=== PATIENT | female | born 1990 | race American Indian/Alaskan Native ===

== ENCOUNTER 2017-06-27 15:31 | Emergency (ER) | payer MEDICAID ==
[2017-06-27] MEDS ORDERED: ULTRAM PO ONE (18:40)
--- NOTE | 2017-06-27 18:44 | Emergency Department Report ---
ED ENT HPI - General Chief complaint: Dental/Oral Stated complaint: RIGHT SIDE TOOTHACHE/EARACHE/HEADACHE Time Seen by Provider: 06/27/17 18:33 Source: patient Mode of arrival: Ambulatory Limitations: No Limitations - History of Present Illness Initial comments: pt is as 26 y/o aaf with hx of dental caries who presents for toothache x 1 week pt denies facial or gum swelling pt is tolerating po intake without difficulty. pain described as 6/10 aching , exacerbated by hot and cold stimuli , pt has not attempted otc pain relief. MD complaint: tooth pain Onset/Timin -: week(s) Location: tooth # (3,4 5) Severity: moderate Severity scale (0 -10): 6 Quality: aching Consistency: intermittent Improves with: none Worsens with: other (hot cold stimuli ) Associated Symptoms: toothache. denies: fever, cough, gum swelling, pain with swallowing, sore throat, tinnitus, hearing loss, discharge from ear, rhinorrhea - Related Data Previous Rx's Medication Instructions Recorded Last Taken Type Amoxicillin 500 mg PO TID #30 capsule 06/27/17 Unknown Rx Chlorhexidine Mouthwash [Peridex] 15 ml MM BID #1 bottle 06/27/17 Unknown Rx traMADol [Ultram] 50 mg PO Q6HR PRN #20 tablet 06/27/17 Unknown Rx Allergies Allergy/AdvReac Type Severity Reaction Status Date / Time amoxicillin AdvReac Swelling Verified 06/27/17 16:25 ED Dental HPI - General Chief complaint: Dental/Oral Stated complaint: RIGHT SIDE TOOTHACHE/EARACHE/HEADACHE Time Seen by Provider: 06/27/17 18:33 Source: patient Mode of arrival: Ambulatory Limitations: No Limitations - Related Data Previous Rx's Medication Instructions Recorded Last Taken Type Amoxicillin 500 mg PO TID #30 capsule 06/27/17 Unknown Rx Chlorhexidine Mouthwash [Peridex] 15 ml MM BID #1 bottle 06/27/17 Unknown Rx traMADol [Ultram] 50 mg PO Q6HR PRN #20 tablet 06/27/17 Unknown Rx Allergies Allergy/AdvReac Type Severity Reaction Status Date / Time amoxicillin AdvReac Swelling Verified 06/27/17 16:25 ED Review of Systems ROS: Stated complaint: RIGHT SIDE TOOTHACHE/EARACHE/HEADACHE Other details as noted in HPI Constitutional: denies: chills, fever Eyes: denies: eye pain, eye discharge, vision change ENT: dental pain Respiratory: denies: cough, shortness of breath, wheezing Cardiovascular: denies: chest pain, palpitations Endocrine: no symptoms reported Gastrointestinal: denies: abdominal pain, nausea, diarrhea Genitourinary: denies: urgency, dysuria, discharge Musculoskeletal: denies: back pain, joint swelling, arthralgia Skin: denies: rash, lesions Neurological: denies: headache, weakness, paresthesias Psychiatric: denies: anxiety, depression Hematological/Lymphatic: denies: easy bleeding, easy bruising ED Past Medical Hx - Past Medical History Previous Medical History?: No - Surgical History Hx Appendectomy: Yes Additional Surgical History: 2007 - Social History Smoking Status: Current Every Day Smoker Substance Use Type: Marijuana - Medications Home Medications: Home Medications Medication Instructions Recorded Confirmed Last Taken Type Amoxicillin 500 mg PO TID #30 capsule 06/27/17 Unknown Rx Chlorhexidine Mouthwash [Peridex] 15 ml MM BID #1 bottle 06/27/17 Unknown Rx traMADol [Ultram] 50 mg PO Q6HR PRN #20 tablet 06/27/17 Unknown Rx ED Physical Exam - General Limitations: No Limitations General appearance: alert, in no apparent distress - Head Head exam: Present: atraumatic, normocephalic - Eye Eye exam: Present: normal appearance, PERRL, EOMI - ENT ENT exam: Present: mucous membranes moist, TM's normal bilaterally - Expanded ENT Exam Expanded Mouth exam: Absent: trismus Teeth exam: Present: dental caries (multiple upper and lower dental caries no focal abscess no trimus no gum or facial swelling uvula midline no stridor airway is patent no cervicle lymph noted ) - Neck Neck exam: Present: normal inspection - Respiratory Respiratory exam: Present: normal lung sounds bilaterally. Absent: respiratory distress - Cardiovascular Cardiovascular Exam: Present: regular rate, normal rhythm. Absent: systolic murmur, diastolic murmur, rubs, gallop - GI/Abdominal GI/Abdominal exam: Present: soft, normal bowel sounds - Rectal Rectal exam: Present: deferred - Extremities Exam Extremities exam: Present: normal inspection - Back Exam Back exam: Present: normal inspection - Neurological Exam Neurological exam: Present: alert, oriented X3 - Psychiatric Psychiatric exam: Present: normal affect, normal mood - Skin Skin exam: Present: warm, dry, intact, normal color. Absent: rash ED Course Vital Signs 06/27/17 16:16 Temperature 98.2 F Pulse Rate 64 Respiratory 14 Rate Blood Pressure 124/86 O2 Sat by Pulse 100 Oximetry ED Medical Decision Making - Medical Decision Making pt presents for chronic infected dental carries mulitple no focal abscess no facial or gum swelling pt is tolerating po intake without difficulty plan. amoxicillin , peridex, ultram and follow up with [facility] will call on friday to setup appointment. pt verbalized understanding and agreement with discharge plan. Critical care attestation.: If time is entered above; I have spent that time in minutes in the direct care of this critically ill patient, excluding procedure time. ED Disposition Clinical Impression: Infected dental carries Disposition: TO HOME OR SELFCARE Is pt being admited?: No Does the pt Need Aspirin: No Condition: Good Instructions: Dental Caries (ED) Additional Instructions: follow up with [facility] [phone] [address] [facility] [id number] Prescriptions: Amoxicillin 500 mg PO TID #30 capsule Chlorhexidine Mouthwash [Peridex] 15 ml MM BID #1 bottle traMADol [Ultram] 50 mg PO Q6HR PRN #20 tablet PRN Reason: Pain Referrals: PRIMARY CARE, [Primary Care Provider] - 3-5 Days Forms: Work/School Release Form(ED) Time of Disposition: 18:51
[2017-06-27 19:09] VITALS: BP 128/70
== END 2017-06-27 19:07 | disposition home or self-care (01) ==
LOC: ED 15:31
DX: K02.9 Dental caries, unspecified (principal); F17.210 Nicotine dependence, cigarettes, uncomplicated; F12.10 Cannabis abuse, uncomplicated; Z88.1 Allergy status to other antibiotic agents
CPT/HCPCS: 99282

== ENCOUNTER 2017-11-19 12:15 | Emergency (ER) | payer MEDICAID ==
[2017-11-19 13:22] VITALS: BP 110/80
[2017-11-19] MEDS ORDERED: TORADOL IV ONE (19:36)
[2017-11-19] MEDS ORDERED: CLEOCIN 900 MG/50 mL 900 MG/50 ML BAG IV ONE (19:36)
[2017-11-19 20:24] LABS: BUN/Creatinine Ratio 24; Blood Urea Nitrogen 12 mg/dL (7-17); Hemolysis Index 13
[2017-11-19 20:26] LABS: Eosinophils # (Auto) 0.2 K/mm3 (0.0-0.4); Eosinophils % (Auto) 1.3 % (0.0-4.3); Hematocrit 38.2 % (30.3-42.9); Hemoglobin 12.3 gm/dl (10.1-14.3); Lymphocytes % (Auto) 23.7 % (13.4-35.0); Mean Corpuscular HGB Conc 32 % (30-34); Mean Corpuscular Hemoglobin 29 pg (28-32); Mean Corpuscular Volume 89 fl (79-97); Monocytes # (Auto) 0.8 K/mm3 (0.0-0.8); Monocytes % (Auto) 6.4 % (0.0-7.3); Platelet Count 286 K/mm3 (140-440); Red Blood Count 4.31 M/mm3 (3.65-5.03); Red Cell Distribution Width 14.5 % (13.2-15.2)
[2017-11-19 20:27] LABS: Basophils % (Auto) 0.2 % (0.0-1.8)
--- NOTE | 2017-11-19 20:33 | Emergency Department Report ---
ED ENT HPI - General Chief complaint: Skin/Abscess/Foreign Body Stated complaint: ABSCESS FACE SWELLING Time Seen by Provider: 11/19/17 17:33 Source: patient Mode of arrival: Ambulatory Limitations: No Limitations - History of Present Illness Initial comments: This is a 27-year-old female presents nontoxic, well nourished in appearance, no acute signs of distress presents to the ED with c/o of chronic intermittent toothache. This morning she woke up with left-sided facial swelling. Patient denies any trauma to the region. Discussed pain is aching with level of 10 out of 10. Patient has a chest pain, headache, blurry vision, shortness of breath, fever, chills, nausea, vomiting or stiff neck. Patient denies any allergies or past medical history. MD complaint: tooth pain -: year(s) Location: tooth # (Multiple) 1 - Multiple Severity: mild Severity scale (0 -10): 10 Quality: aching Consistency: constant Improves with: none Worsens with: none Context- Dental: history of dental caries, poor dental care Associated Symptoms: gum swelling, toothache. denies: fever, cough, pain with swallowing, sore throat, tinnitus, hearing loss, discharge from ear, rhinorrhea - Related Data Previous Rx's Medication Instructions Recorded Last Taken Type Amoxicillin 500 mg PO TID #30 capsule 06/27/17 Unknown Rx Chlorhexidine Mouthwash [Peridex] 15 ml MM BID #1 bottle 06/27/17 Unknown Rx traMADol [Ultram] 50 mg PO Q6HR PRN #20 tablet 06/27/17 Unknown Rx Clindamycin [Clindamycin CAP] 450 mg PO Q8HR 7 Days capsule 11/19/17 Unknown Rx traMADol [Ultram] 50 mg PO Q6HR PRN #12 tablet 11/19/17 Unknown Rx Allergies Allergy/AdvReac Type Severity Reaction Status Date / Time No Known Allergies Allergy Unverified 11/19/17 13:20 ED Dental HPI - General Chief complaint: Skin/Abscess/Foreign Body Stated complaint: ABSCESS FACE SWELLING Time Seen by Provider: 11/19/17 17:33 Source: patient Mode of arrival: Ambulatory Limitations: No Limitations - Related Data Previous Rx's Medication Instructions Recorded Last Taken Type Amoxicillin 500 mg PO TID #30 capsule 06/27/17 Unknown Rx Chlorhexidine Mouthwash [Peridex] 15 ml MM BID #1 bottle 06/27/17 Unknown Rx traMADol [Ultram] 50 mg PO Q6HR PRN #20 tablet 06/27/17 Unknown Rx Clindamycin [Clindamycin CAP] 450 mg PO Q8HR 7 Days capsule 11/19/17 Unknown Rx traMADol [Ultram] 50 mg PO Q6HR PRN #12 tablet 11/19/17 Unknown Rx Allergies Allergy/AdvReac Type Severity Reaction Status Date / Time No Known Allergies Allergy Unverified 11/19/17 13:20 ED Review of Systems ROS: Stated complaint: ABSCESS FACE SWELLING Other details as noted in HPI Constitutional: denies: chills, fever Eyes: denies: eye pain, eye discharge, vision change ENT: dental pain. denies: ear pain, throat pain Respiratory: denies: cough, shortness of breath, wheezing Cardiovascular: denies: chest pain, palpitations Endocrine: no symptoms reported Gastrointestinal: denies: abdominal pain, nausea, diarrhea Genitourinary: denies: urgency, dysuria, discharge Musculoskeletal: denies: back pain, joint swelling, arthralgia Skin: denies: rash, lesions Neurological: denies: headache, weakness, paresthesias Psychiatric: denies: anxiety, depression Hematological/Lymphatic: denies: easy bleeding, easy bruising ED Past Medical Hx - Past Medical History Previous Medical History?: No - Surgical History Hx Appendectomy: Yes Additional Surgical History: 2007 - Social History Smoking Status: Current Every Day Smoker Substance Use Type: None - Medications Home Medications: Home Medications Medication Instructions Recorded Confirmed Last Taken Type Amoxicillin 500 mg PO TID #30 capsule 06/27/17 Unknown Rx Chlorhexidine Mouthwash [Peridex] 15 ml MM BID #1 bottle 06/27/17 Unknown Rx traMADol [Ultram] 50 mg PO Q6HR PRN #20 tablet 06/27/17 Unknown Rx Clindamycin [Clindamycin CAP] 450 mg PO Q8HR 7 Days capsule 11/19/17 Unknown Rx traMADol [Ultram] 50 mg PO Q6HR PRN #12 tablet 11/19/17 Unknown Rx ED Physical Exam - General Limitations: No Limitations General appearance: alert, in no apparent distress - Head Head exam: Present: atraumatic, normocephalic, normal inspection - Eye Eye exam: Present: normal appearance, PERRL, EOMI. Absent: scleral icterus, conjunctival injection, nystagmus, periorbital swelling, periorbital tenderness Pupils: Present: normal accommodation - ENT ENT exam: Present: mucous membranes moist, TM's normal bilaterally, normal external ear exam - Expanded ENT Exam Expanded Ear exam: Present: normal external inspection Mouth exam: Present: normal external inspection, tongue normal. Absent: drooling, trismus, muffled voice, tongue elevation, laceration Teeth exam: Present: dental caries, fractured tooth # (Multiple), dental tenderness # (Multiple), gingival enlargement, other (Left sided facial swelling.) 1 - Fractured, Dental Tenderness Throat exam: Positive: normal inspection, other (Uvula midline). Negative: tonsillar erythema, tonsillomegaly, tonsillar exudate, R peritonsillar mass, L peritonsillar mass - Neck Neck exam: Present: normal inspection, full ROM. Absent: tenderness, meningismus, lymphadenopathy, thyromegaly - Respiratory Respiratory exam: Present: normal lung sounds bilaterally. Absent: respiratory distress, wheezes, rales, rhonchi, stridor, chest wall tenderness, accessory muscle use, decreased breath sounds, prolonged expiratory - Cardiovascular Cardiovascular Exam: Present: regular rate, normal rhythm, normal heart sounds. Absent: irregular rhythm, systolic murmur, diastolic murmur, rubs, gallop - GI/Abdominal GI/Abdominal exam: Present: soft, normal bowel sounds. Absent: distended, tenderness, guarding, rebound, rigid, diminished bowel sounds - Rectal Rectal exam: Present: deferred - Extremities Exam Extremities exam: Present: normal inspection, full ROM, normal capillary refill. Absent: tenderness, pedal edema, joint swelling, calf tenderness - Back Exam Back exam: Present: normal inspection, full ROM. Absent: tenderness, CVA tenderness (R), CVA tenderness (L), muscle spasm, paraspinal tenderness, vertebral tenderness, rash noted - Neurological Exam Neurological exam: Present: alert, oriented X3, CN II-XII intact, normal gait, reflexes normal - Psychiatric Psychiatric exam: Present: normal affect, normal mood - Skin Skin exam: Present: warm, dry, intact, normal color. Absent: rash ED Course Vital Signs 11/19/17 13:20 Temperature 98.5 F Pulse Rate 69 Respiratory 18 Rate Blood Pressure 110/80 O2 Sat by Pulse 99 Oximetry - Reevaluation(s) Reevaluation #1: 11/19/17 20:36 Patient is speaking in full sentences with no signs of distress noted. - I & D Face Type of Procedure: Simple Site: left gingivial region Blade Size: 11 Progress: Under sterile field, I used Betadine to cleanse the area. I then used an 11 blade to make a 1 cm incision. About 10 mL's of purulent drainage has been noted. I then used sterile 0.9% normal saline flush to flush the wound with total volume of 40 mL used. Bleeding is under control. Patient tolerated the procedure well with no signs of distress noted. ED Medical Decision Making - Lab Data Result diagrams: 11/19/17 19:54 11/19/17 19:54 - Medical Decision Making This is a 27-year-old female that presents with Multiple dental caries, gingivitis, and maxillary abscess. Patient stable and wasn't examined by me. Labs obtained. CT of face with contrast obtained and dictated the radiologist. Patient is notified of CT findings with note noted by the patient. Patient received clindamycin 900 mg IV in the ED and Toradol for pain. I used 11 blade to anderson the left gingival region with positive drainage noted. Patient discharged with Clinda and Ultram and was instructed not to operate any machinery while taking Ultram due to drowsiness.. Patient was instructed Follow -up with a dentist/oral maxillary surgeon in 24 hours or if symptoms worsen and continue return to emergency room as soon as possible. At time time of discharge, the patient does not seem toxic or ill in appearance. No acute signs of distress noted. Patient agrees to discharge treatment plan of care. No further questions noted by the patient. Critical care attestation.: If time is entered above; I have spent that time in minutes in the direct care of this critically ill patient, excluding procedure time. ED Disposition Clinical Impression: Dental caries, Gingivitis, Abscess of maxilla, Encounter for incision and drainage procedure Disposition: TO HOME OR SELFCARE Is pt being admited?: No Does the pt Need Aspirin: No Condition: Stable Instructions: Clindamycin (By mouth), Tramadol (By mouth), Dental Caries (ED), Gingivitis (ED), Abscess Incision and Drainage (ED), Dental Abscess (ED) Additional Instructions: Follow-up with a dentist/oral maxillary surgeon in 24 hours or if symptoms worsen and continue return to emergency room as soon as possible. Prescriptions: Clindamycin [Clindamycin CAP] 450 mg PO Q8HR 7 Days capsule traMADol [Ultram] 50 mg PO Q6HR PRN #12 tablet PRN Reason: Pain Referrals: JETT PERKINS MD [Primary Care Provider] - 3-5 Days PRIMARY CARE, [Referring] - 3-5 Days [facility] [place] [Outside] - 3-5 Days [facility] [Outside] - 24 Hours Forms: Work/School Release Form(ED)
--- NOTE | 2017-11-19 21:45 | Cat Scan Report ---
FINAL REPORT PROCEDURE: CT FACIAL BONES W CON TECHNIQUE: Computerized tomography of the facial bones and soft tissues with axial and coronal sections was performed from the cranial aspect of the frontal sinuses to the caudal portion of the mandible following the IV injection of iodinated nonionic contrast. HISTORY: facial swelling r/o abscess COMPARISON: No prior studies are available for comparison. FINDINGS: There is lucency at the root of the left maxillary 2nd premolar, compatible with periapical abscess. There is an adjacent soft tissue low-attenuation area with peripheral enhancement, compatible with a subperiosteal abscess; this measures approximately 8 millimeters AP x 5 millimeters transverse x 18 millimeters craniocaudal. There is overlying stranding, compatible with cellulitis. Paranasal sinuses are aerated. IMPRESSION: Left maxillary periapical abscess with overlying subperiosteal abscess as described above
[2017-11-19] MEDS ORDERED: BOOSTRIX IM ONE (22:04)
== END 2017-11-19 22:49 | disposition home or self-care (01) ==
LOC: ED 12:15
DX: M27.2 Inflammatory conditions of jaws (principal); K02.9 Dental caries, unspecified; K05.10 Chronic gingivitis, plaque induced; F17.200 Nicotine dependence, unspecified, uncomplicated
CPT/HCPCS: 36415; 41800; 70487; 80048; 84703; 85025; 90471; 90715; 96365; 96375; 99284; J1885; Q9967

== ENCOUNTER 2017-12-31 13:40 | Outpatient (CLI) | payer MEDICAID ==
--- NOTE | 2017-12-31 16:13 | Ultrasound Report ---
BILATERAL DIGITAL DIAGNOSTIC MAMMOGRAM with CAD and RIGHT BREAST ULTRASOUND: 12/31/17 14:00:00 CLINICAL: 27 year-old with a right breast lump and pain for one week. COMPARISON:None. Baseline mammogram. FINDINGS: The breasts are heterogeneously dense, which may obscure small masses areaNo mass, architectural distortion or suspicious calcifications . No mammographic finding at a right upper outer palpable marker. Ultrasound of the right breast (including all four quadrants and the retroareolar area) was performed and demonstrated normal fibroglandular and fatty structures. No mass, cyst or shadowing. Normal breast tissue is identified at 10 o'clock in the area of the palpable lump. IMPRESSION: Negative mammogram and negative right breast ultrasound. BI-RADS CATEGORY: 1 - - Negative RECOMMENDATION: Clinical follow-up of the palpable area and routine mammographic screening based on ACS guidelines. ACR BI-RADS MAMMOGRAPHIC CODES: 0 = Needs additional imaging evaluation; 1 = Negative; 2 = Benign; 3 = Probably benign; 4 = Suspicious; 5 = Malignant; 6 = Known biopsy-proven malignancy COMMENT: 1. Dense breast tissue, i.e., adenosis, fibrocystic changes, etc., may obscure an underlying neoplasm. 2. Approximately 10% of cancers are not detected with mammography. 3. A negative mammography report should not delay biopsy if a clinically suspicious mass is present. COMMENT: Patient follow-up letters are generated by our [employer] application.
== END 2017-12-31 13:41 | disposition home or self-care (01) ==
LOC: MAMMO 13:40
PROVIDERS: ATTEND Internal Medicine
DX: N63.10 Unspecified lump in the right breast, unspecified quadrant (principal); N64.4 Mastodynia
CPT/HCPCS: 77066

== ENCOUNTER 2018-01-11 08:01 | Emergency (ER) | payer MEDICAID ==
[2018-01-11 08:08] VITALS: BP 115/67
[2018-01-11] MEDS ORDERED: MOTRIN PO ONE (10:49)
--- NOTE | 2018-01-11 10:55 | Emergency Department Report ---
ED ENT HPI - General Chief complaint: Dental/Oral Stated complaint: ABSCESSED TOOTH Time Seen by Provider: 01/11/18 10:17 Source: patient Mode of arrival: Ambulatory Limitations: No Limitations - History of Present Illness Initial comments: This is a 27-year-old female presents nontoxic, well nourished in appearance, no acute signs of distress presents to the ED with c/o of chronic intermittent toothache. Patient stated she feels a small bump to the right upper tooth region and believes she has an abscess. Patient denies any trauma to the region. Discussed pain is aching with level of 10 out of 10. Patient has a chest pain, headache, blurry vision, shortness of breath, fever, chills, nausea , vomiting or stiff neck. Patient denies any allergies or past medical history. MD complaint: tooth pain Location: tooth # (6,7,8) 1 - toothache Severity scale (0 -10): 8 Quality: aching Consistency: constant Improves with: none Worsens with: none Context- Dental: history of dental caries, poor dental care Associated Symptoms: gum swelling, toothache. denies: fever, cough, pain with swallowing, sore throat, tinnitus, hearing loss, discharge from ear, rhinorrhea - Related Data Previous Rx's Medication Instructions Recorded Last Taken Type Amoxicillin 500 mg PO TID #30 capsule 06/27/17 Unknown Rx Chlorhexidine Mouthwash [Peridex] 15 ml MM BID #1 bottle 06/27/17 Unknown Rx traMADol [Ultram] 50 mg PO Q6HR PRN #20 tablet 06/27/17 Unknown Rx Clindamycin [Clindamycin CAP] 450 mg PO Q8HR 7 Days capsule 11/19/17 Unknown Rx traMADol [Ultram] 50 mg PO Q6HR PRN #12 tablet 11/19/17 Unknown Rx Chlorhexidine Mouthwash [Peridex] 15 ml MM BID #1 bottle 01/11/18 Unknown Rx Clindamycin [Clindamycin CAP] 450 mg PO Q6HR 7 Days capsule 01/11/18 Unknown Rx Ibuprofen [Motrin] 600 mg PO Q8H PRN 30 Days tablet 01/11/18 Unknown Rx Allergies Allergy/AdvReac Type Severity Reaction Status Date / Time No Known Allergies Allergy Unverified 11/19/17 13:20 ED Dental HPI - General Chief complaint: Dental/Oral Stated complaint: ABSCESSED TOOTH Time Seen by Provider: 01/11/18 10:17 Source: patient Mode of arrival: Ambulatory Limitations: No Limitations - Related Data Previous Rx's Medication Instructions Recorded Last Taken Type Amoxicillin 500 mg PO TID #30 capsule 06/27/17 Unknown Rx Chlorhexidine Mouthwash [Peridex] 15 ml MM BID #1 bottle 06/27/17 Unknown Rx traMADol [Ultram] 50 mg PO Q6HR PRN #20 tablet 06/27/17 Unknown Rx Clindamycin [Clindamycin CAP] 450 mg PO Q8HR 7 Days capsule 11/19/17 Unknown Rx traMADol [Ultram] 50 mg PO Q6HR PRN #12 tablet 11/19/17 Unknown Rx Chlorhexidine Mouthwash [Peridex] 15 ml MM BID #1 bottle 01/11/18 Unknown Rx Clindamycin [Clindamycin CAP] 450 mg PO Q6HR 7 Days capsule 01/11/18 Unknown Rx Ibuprofen [Motrin] 600 mg PO Q8H PRN 30 Days tablet 01/11/18 Unknown Rx Allergies Allergy/AdvReac Type Severity Reaction Status Date / Time No Known Allergies Allergy Unverified 11/19/17 13:20 ED Review of Systems ROS: Stated complaint: ABSCESSED TOOTH Other details as noted in HPI Constitutional: denies: chills, fever Eyes: denies: eye pain, eye discharge, vision change ENT: dental pain. denies: ear pain, throat pain Respiratory: no symptoms reported. denies: cough, shortness of breath, wheezing Cardiovascular: denies: chest pain, palpitations Endocrine: no symptoms reported Gastrointestinal: denies: abdominal pain, nausea, diarrhea Genitourinary: denies: urgency, dysuria, discharge Musculoskeletal: denies: back pain, joint swelling, arthralgia Skin: denies: rash, lesions Neurological: denies: headache, weakness, paresthesias Psychiatric: denies: anxiety, depression Hematological/Lymphatic: denies: easy bleeding, easy bruising ED Past Medical Hx - Past Medical History Previous Medical History?: No - Surgical History Hx Appendectomy: Yes Additional Surgical History: 2008 - Social History Smoking Status: Current Every Day Smoker Substance Use Type: None - Medications Home Medications: Home Medications Medication Instructions Recorded Confirmed Last Taken Type Amoxicillin 500 mg PO TID #30 capsule 06/27/17 Unknown Rx Chlorhexidine Mouthwash [Peridex] 15 ml MM BID #1 bottle 06/27/17 Unknown Rx traMADol [Ultram] 50 mg PO Q6HR PRN #20 tablet 06/27/17 Unknown Rx Clindamycin [Clindamycin CAP] 450 mg PO Q8HR 7 Days capsule 11/19/17 Unknown Rx traMADol [Ultram] 50 mg PO Q6HR PRN #12 tablet 11/19/17 Unknown Rx Chlorhexidine Mouthwash [Peridex] 15 ml MM BID #1 bottle 01/11/18 Unknown Rx Clindamycin [Clindamycin CAP] 450 mg PO Q6HR 7 Days capsule 01/11/18 Unknown Rx Ibuprofen [Motrin] 600 mg PO Q8H PRN 30 Days tablet 01/11/18 Unknown Rx ED Physical Exam - General Limitations: No Limitations General appearance: alert, in no apparent distress - Head Head exam: Present: atraumatic, normocephalic - Eye Eye exam: Present: normal appearance, PERRL, EOMI Pupils: Present: normal accommodation - ENT ENT exam: Present: mucous membranes moist, TM's normal bilaterally, normal external ear exam - Expanded ENT Exam Expanded Ear exam: Present: normal external inspection Mouth exam: Present: normal external inspection, tongue normal. Absent: drooling, trismus, muffled voice, tongue elevation, laceration Teeth exam: Present: dental caries, dental tenderness # (6,7,8), gingival enlargement, other (No swellig or abscess noted. No induration or flutance ntoed. ) 1 - Dental Tenderness Throat exam: Positive: normal inspection, other (Uvula midlione. ). Negative: tonsillar erythema, tonsillomegaly, tonsillar exudate, R peritonsillar mass, L peritonsillar mass - Neck Neck exam: Present: normal inspection, full ROM. Absent: tenderness, meningismus, lymphadenopathy, thyromegaly - Respiratory Respiratory exam: Present: normal lung sounds bilaterally. Absent: respiratory distress, wheezes, rales, rhonchi, stridor, chest wall tenderness, accessory muscle use, decreased breath sounds, prolonged expiratory - Cardiovascular Cardiovascular Exam: Present: regular rate, normal rhythm. Absent: systolic murmur, diastolic murmur, rubs, gallop - GI/Abdominal GI/Abdominal exam: Present: soft, normal bowel sounds - Extremities Exam Extremities exam: Present: normal inspection - Back Exam Back exam: Present: normal inspection - Neurological Exam Neurological exam: Present: alert, oriented X3 - Psychiatric Psychiatric exam: Present: normal affect, normal mood - Skin Skin exam: Present: warm, dry, intact, normal color. Absent: rash ED Course Vital Signs 01/11/18 08:06 Temperature 98.4 F Pulse Rate 64 Respiratory 18 Rate Blood Pressure 115/67 O2 Sat by Pulse 100 Oximetry - Reevaluation(s) Reevaluation #1: 01/11/18 10:53 Patient is speaking in full sentences with no signs of distress noted. Critical care attestation.: If time is entered above; I have spent that time in minutes in the direct care of this critically ill patient, excluding procedure time. ED Disposition Clinical Impression: Dental caries, Gingivitis Disposition: DC-01 TO HOME OR SELFCARE Is pt being admited?: No Does the pt Need Aspirin: No Condition: Stable Instructions: Dental Caries (ED), Gingivitis (ED), Ibuprofen (By mouth), Clindamycin (By mouth) Additional Instructions: Follow-up with a dentist in 3-5 days or if symptoms worsen and continue return to emergency room as soon as possible. Prescriptions: Chlorhexidine Mouthwash [Peridex] 15 ml MM BID #1 bottle Clindamycin [Clindamycin CAP] 450 mg PO Q6HR 7 Days capsule Ibuprofen [Motrin] 600 mg PO Q8H PRN 30 Days tablet PRN Reason: Pain Referrals: PRIMARY CARE, [Primary Care Provider] - 3-5 Days WALKER VIGIL MD [Staff Physician] - 3-[address] [facility] [Outside] - 3-5 Days Forms: Work/School Release Form(ED)
== END 2018-01-11 11:19 | disposition home or self-care (01) ==
LOC: ED 08:01
DX: K02.9 Dental caries, unspecified (principal); K05.10 Chronic gingivitis, plaque induced; F17.200 Nicotine dependence, unspecified, uncomplicated
CPT/HCPCS: 99282

== ENCOUNTER 2019-08-22 02:11 | Emergency (ER) | payer BC ==
[2019-08-22] MEDS ORDERED: SODIUM CHLORIDE 0.9% 1000 ML 1,000 ML IV ONE (02:50)
[2019-08-22] MEDS ORDERED: ONDANSETRON 4 MG/2 ML INJ IV ONE (02:50)
[2019-08-22] MEDS ORDERED: MORPHINE 4 MG/1 ML INJ IV ONE (02:50)
[2019-08-22 03:20] LABS: Basophils # (Auto) 0.1 K/mm3 (0.0-0.1); Basophils % (Auto) 0.9 % (0.0-1.8); Eosinophils # (Auto) 0.2 K/mm3 (0.0-0.4); Eosinophils % (Auto) 2.7 % (0.0-4.3); Hematocrit 39.9 % (30.3-42.9); Hemoglobin 13.3 gm/dl (10.1-14.3); Lymphocytes # (Auto) 2.3 K/mm3 (1.2-5.4); Lymphocytes % (Auto) 28.7 % (13.4-35.0); Mean Corpuscular HGB Conc 34 % (30-34); Mean Corpuscular Volume 85 fl (79-97); Monocytes # (Auto) 0.7 K/mm3 (0.0-0.8); Monocytes % (Auto) 8.4 % (0.0-7.3); Platelet Count 308 K/mm3 (140-440); Red Blood Count 4.69 M/mm3 (3.65-5.03); Red Cell Distribution Width 15.5 % (13.2-15.2)
[2019-08-22 03:46] LABS: Bacteria,Urine 1+ /HPF (Negative); Bilirubin,Urine NEG (Negative); Blood,Urine LG (Negative); Color,Urine Yellow (Yellow); Mucus,Urine FEW /HPF; Urobilinogen,Urine < 2.0 mg/dL (<2.0)
[2019-08-22 03:51] LABS: RBC,Urine > 182.0 /HPF (0.0-6.0)
[2019-08-22 03:52] LABS: Alanine Aminotransferase 16 units/L (7-56); Albumin 4.5 g/dL (3.9-5); BUN/Creatinine Ratio 19; Blood Urea Nitrogen 13 mg/dL (7-17); Calcium 9.3 mg/dL (8.4-10.2); Hemolysis Index 16
--- NOTE | 2019-08-22 04:28 | Cat Scan Report ---
CT ABDOMEN AND PELVIS WITH CONTRAST INDICATION / CLINICAL INFORMATION: abdominal pain. TECHNIQUE: Axial CT images were obtained through the abdomen and pelvis after 100 mL Omnipaque [address] scans at this location are performed using CT dose reduction for ALARA by means of automated exposure control. COMPARISON: None available. FINDINGS: LOWER CHEST: No significant abnormality. LIVER: A subcentimeter low density in the right hepatic lobe is too small to characterize but statist ically benign. BILIARY SYSTEM: No significant abnormality. PANCREAS: No significant abnormality. SPLEEN: No significant abnormality. ADRENALS: No significant abnormality. KIDNEYS and URETERS: A subcentimeter low density in the left lower pole likely represents a cyst. STOMACH / BOWEL: No significant abnormality. The appendix is not definitively seen, but there are no CT findings to suggest acute appendicitis. PERITONEUM: Trace pelvic free fluid, likely physiologic. No free air. No fluid collection. LYMPH NODES: No significant adenopathy. VASCULAR STRUCTURES: No significant abnormality. URINARY BLADDER: No significant abnormality. REPRODUCTIVE ORGANS: No significant abnormality. ADDITIONAL FINDINGS: None. SKELETAL SYSTEM: No significant abnormality. IMPRESSION: 1. No acute process identified within the abdomen or pelvis to account for patient's abdominal pain. Signer Name: Opal Menezes MD Signed: 08/22/2019 4:24 AM Workstation Name: [email or web address]
[2019-08-22] MEDS ORDERED: KETOROLAC 30 MG/1 ML INJ IV ONE (04:30)
[2019-08-22] MEDS ORDERED: METOCLOPRAMIDE 10 MG/2 ML INJ IV ONE (04:30)
[2019-08-22] MEDS ORDERED: diphenhydrAMINE 50 MG/ML VIAL IV ONE (04:31)
--- NOTE | 2019-08-22 04:35 | Emergency Department Report ---
ED Abdominal Pain HPI - General Chief Complaint: Abdominal Pain Stated Complaint: ABD PAIN Source: patient Mode of arrival: Ambulatory Limitations: No Limitations - History of Present Illness Initial Comments: Patient is a 29-year-old -[place] female with no past medical history who presents to the ED with complaint of acute onset persistent severe suprapubic pain that radiates diffusely to the lower abdomen with nausea and vomiting for the last 12 hours. Patient states that the pain has progressively worsened this patient in the last 2 hours. Patient denies dizziness, diarrhea, vaginal bleeding, dysuria, urinary frequency and urgency, vaginal discharge, low back pain, hematuria, chest pain, shortness of breath, fever and chills or cough and sore throat. MD Complaint: abdominal pain, other (Nausea and vomiting) -: Sudden, hour(s) (12) Location: suprapubic Radiation: LLQ, RLQ Migration to: no migration Severity: severe Severity scale (0 -10): 9 Quality: cramping, aching, sharp Consistency: constant Improves With: nothing Worsens With: nothing Associated Symptoms: denies other symptoms, nausea, vomiting. denies: diarrhea, fever, constipation, dysuria, hematemesis, hematochezia, melena, syncope - Related Data LMP Date: 08/17/19 Previous Rx's Medication Instructions Recorded Last Taken Type Amoxicillin 500 mg PO TID #30 capsule 06/27/17 Unknown Rx Chlorhexidine Mouthwash [Peridex] 15 ml MM BID #1 bottle 06/27/17 Unknown Rx traMADol [Ultram] 50 mg PO Q6HR PRN #20 tablet 06/27/17 Unknown Rx Clindamycin [Clindamycin CAP] 450 mg PO Q8HR 7 Days capsule 11/19/17 Unknown Rx Chlorhexidine Mouthwash [Peridex] 15 ml MM BID #1 bottle 01/11/18 Unknown Rx Clindamycin [Clindamycin CAP] 450 mg PO Q6HR 7 Days capsule 01/11/18 Unknown Rx Ibuprofen [Motrin] 600 mg PO Q8H PRN 30 Days tablet 01/11/18 Unknown Rx Cephalexin [Keflex] 250 mg PO BID #14 capsule 10/13/18 Unknown Rx Ketorolac [Toradol] 10 mg PO Q6H PRN #20 tablet 08/22/19 Unknown Rx Promethazine [Phenergan] 25 mg PO Q6HR PRN #24 tab 08/22/19 Unknown Rx traMADol [Ultram 50 MG tab] 50 mg PO Q6HR PRN #12 tablet 08/22/19 Unknown Rx traMADol [Ultram] 50 mg PO Q6HR PRN #12 tablet 08/22/19 Unknown Rx Allergies Allergy/AdvReac Type Severity Reaction Status Date / Time amoxicillin AdvReac Swelling Verified 08/22/19 02:24 ED Review of Systems ROS: Stated complaint: ABD PAIN Other details as noted in HPI Constitutional: denies: chills, fever Eyes: denies: eye pain, eye discharge, vision change ENT: denies: ear pain, throat pain Respiratory: denies: cough, shortness of breath, wheezing Cardiovascular: denies: chest pain, palpitations Endocrine: no symptoms reported Gastrointestinal: abdominal pain, nausea, vomiting. denies: diarrhea Genitourinary: denies: urgency, dysuria, discharge Musculoskeletal: denies: back pain, joint swelling, arthralgia Skin: denies: rash, lesions Neurological: denies: headache, weakness, paresthesias Psychiatric: denies: anxiety, depression Hematological/Lymphatic: denies: easy bleeding, easy bruising ED Past Medical Hx - Past Medical History Previous Medical History?: No - Surgical History Past Surgical History?: Yes Hx Appendectomy: Yes (2007) Additional Surgical History: 2007 - Social History Smoking Status: Current Every Day Smoker Substance Use Type: None - Medications Home Medications: Home Medications Medication Instructions Recorded Confirmed Last Taken Type Amoxicillin 500 mg PO TID #30 capsule 06/27/17 Unknown Rx Chlorhexidine Mouthwash [Peridex] 15 ml MM BID #1 bottle 06/27/17 Unknown Rx traMADol [Ultram] 50 mg PO Q6HR PRN #20 tablet 06/27/17 Unknown Rx Clindamycin [Clindamycin CAP] 450 mg PO Q8HR 7 Days capsule 11/19/17 Unknown Rx Chlorhexidine Mouthwash [Peridex] 15 ml MM BID #1 bottle 01/11/18 Unknown Rx Clindamycin [Clindamycin CAP] 450 mg PO Q6HR 7 Days capsule 01/11/18 Unknown Rx Ibuprofen [Motrin] 600 mg PO Q8H PRN 30 Days tablet 01/11/18 Unknown Rx Cephalexin [Keflex] 250 mg PO BID #14 capsule 10/13/18 Unknown Rx Ketorolac [Toradol] 10 mg PO Q6H PRN #20 tablet 08/22/19 Unknown Rx Promethazine [Phenergan] 25 mg PO Q6HR PRN #24 tab 08/22/19 Unknown Rx traMADol [Ultram 50 MG tab] 50 mg PO Q6HR PRN #12 tablet 08/22/19 Unknown Rx traMADol [Ultram] 50 mg PO Q6HR PRN #12 tablet 08/22/19 Unknown Rx ED Physical Exam - General Limitations: No Limitations General appearance: alert, in no apparent distress - Head Head exam: Present: atraumatic, normocephalic, normal inspection - Eye Eye exam: Present: normal appearance, PERRL, EOMI Pupils: Present: normal accommodation - ENT ENT exam: Present: normal exam, normal orophraynx, mucous membranes moist, TM's normal bilaterally, normal external ear exam - Neck Neck exam: Present: normal inspection, full ROM - Respiratory Respiratory exam: Present: normal lung sounds bilaterally. Absent: respiratory distress, wheezes, rales, stridor, chest wall tenderness, decreased breath sounds - Cardiovascular Cardiovascular Exam: Present: regular rate, normal rhythm, normal heart sounds. Absent: systolic murmur, diastolic murmur, rubs, gallop - GI/Abdominal GI/Abdominal exam: Present: soft, tenderness (palpability diffuse lower abdominal tenderness, no guarding or rebound), normal bowel sounds. Absent: guarding, rebound - Extremities Exam Extremities exam: Present: normal inspection, full ROM, normal capillary refill - Back Exam Back exam: Present: normal inspection, full ROM. Absent: tenderness, CVA tenderness (R), muscle spasm, paraspinal tenderness, vertebral tenderness - Neurological Exam Neurological exam: Present: alert, oriented X3, CN II-XII intact, normal gait, reflexes normal - Psychiatric Psychiatric exam: Present: normal affect, normal mood - Skin Skin exam: Present: warm, dry, intact, normal color. Absent: rash ED Course Vital Signs 08/22/19 03:24 Respiratory 16 Rate - Reevaluation(s) Reevaluation #1: 08/22/19 04:34 This is a 29-year-old female who presented to the ED with diffuse lower abdominal pain with nausea and vomiting for the last 12 hours. Patient states that the pain worsened in the last 2 hours, and woke up from sleep. In the ED, patient is alert and oriented 3 and is not in distress but appears to be in pain. Lab test results were reviewed and are all nonactionable. Patient was treated for pain, also treated for nausea and vomiting in the ED. Abdomen pelvis CT scan with contrast shows no acute GI or pelvis pathology. No acute process identified within the abdomen or pelvis to account for patient's abdomi nal pain. On reevaluation, patient's pain is well controlled with medications, and patient was discharged home on pain medications and antiemetics, and was advised to return to the ED immediately if symptoms get worse. Patient was otherwise advised to follow-up with Her Medicare physician in 7-10 days for reevaluation. 08/22/19 04:36 08/22/19 04:38 ED Medical Decision Making - Lab Data Result diagrams: 08/22/19 02:34 08/22/19 02:34 - Radiology Data Radiology results: report reviewed, [place] [address] Cat Scan Report Signed Patient: JW VALENZUELA MR#: [id number] : 1990 Acct:[id number] Age/Sex: 29 / F ADM Date: 08/22/19 Loc: ED Attending Dr: Ordering Physician: ANGELO COOMBS Date of Service: 08/22/19 Procedure(s): CT abdomen pelvis w con Accession Number(s): [id number] cc: ANGELO COOMBS CT ABDOMEN AND PELVIS WITH CONTRAST INDICATION / CLINICAL INFORMATION: abdominal pain. TECHNIQUE: Axial CT images were obtained through the abdomen and pelvis after 100 mL O mnipaque [address] scans at this location are performed using CT dose reduction for ALARA by means of automated exposure control. COMPARISON: None available. FINDINGS: LOWER CHEST: No significant abnormality. LIVER: A subcentimeter low density in the right hepatic lobe is too small to characterize but statistically benign. BILIARY SYSTEM: No significant abnormality. PANCREAS: No significant abnormality. SPLEEN: No significant abnormality. ADRENALS: No significant abnormality. KIDNEYS and URETERS: A subcentimeter low density in the left lower pole likely represents a cyst. STOMACH / BOWEL: No significant abnormality. The appendix is not definitively seen, but there are no CT findings to suggest acute appendicitis. PERITONEUM: Trace pelvic free fluid, likely physiologic. No free air. No fluid collection. LYMPH NODES: No significant adenopathy. VASCULAR STRUCTURES: No significant abnormality. URINARY BLADDER: No significant abnormality. REPRODUCTIVE ORGANS: No significant abnormality. ADDITIONAL FINDINGS: None. SKELETAL SYSTEM: No significant abnormality. IMPRESSION: 1. No acute process identified within the abdomen or pelvis to account for patient's abdominal pain. Signer Name: Opal Menezes MD Signed: 08/22/2019 4:24 AM Workstation Name: [id number] Transcribed By: [facility] Dictated By: Opal Menezes MD Electronically Authenticated By: Opal Menezes MD Signed Date/Time: 08/22/19 0424 - Medical Decision Making This is a 29-year-old female who presented to the ED with diffuse lower abdominal pain with nausea and vomiting for the last 12 hours. Patient states that the pain worsened in the last 2 hours, and woke up from sleep. In the ED, patient is alert and oriented 3 and is not in distress but appears to be in pain. Lab test results were reviewed and are all nonactionable. Patient was treated for pain, also treated for nausea and vomiting in the ED. Abdomen pelvis CT scan with contrast shows no acute GI or pelvis pathology. No acute process identified within the abdomen or pelvis to account for patient's abd ominal pain. On reevaluation, patient's pain is well controlled with medications, and patient was discharged home on pain medications and antiemetics, and was advised to return to the ED immediately if symptoms get worse. Patient was otherwise advised to follow-up with her Primary care physician in 7-10 days for reevaluation. - Differential Diagnosis abdominal pain, colitis; UTI; Uterine fibroids; Critical care attestation.: If time is entered above; I have spent that time in minutes in the direct care of this critically ill patient, excluding procedure time. ED Disposition Clinical Impression: Nausea and vomiting in adult patient, Dysmenorrhea Abdominal pain Qualifiers: Abdominal location: lower abdomen, unspecified Qualified Code(s): R10.30 - Lower abdominal pain, unspecified Disposition: - TO HOME OR SELFCARE Is pt being admited?: Yes Condition: Stable Instructions: Abdominal Pain (ED) Additional Instructions: Take medication with food, drink plenty of fluids and follow-up with your primary care physician in 5-7 days for reevaluation. Return to the ED immediately if symptoms get worse. Prescriptions: Promethazine [Phenergan] 25 mg PO Q6HR PRN #24 tab PRN Reason: Nausea Ketorolac [Toradol] 10 mg PO Q6H PRN #20 tablet PRN Reason: Pain traMADol [Ultram] 50 mg PO Q6HR PRN #12 tablet PRN Reason: Pain traMADol [Ultram 50 MG tab] 50 mg PO Q6HR PRN #12 tablet PRN Reason: Pain Referrals: PRIMARY CARE,MD [Primary Care Provider] - 3-5 Days Time of Disposition: 04:42 Print Language: AMHARIC
[2019-08-22 05:26] VITALS: BP 151/89
== END 2019-08-22 05:15 | disposition home or self-care (01) ==
LOC: ED 02:11
DX: N94.6 Dysmenorrhea, unspecified (principal); R11.2 Nausea with vomiting, unspecified; F17.200 Nicotine dependence, unspecified, uncomplicated; Z90.49 Acquired absence of other specified parts of digestive tract; Z79.899 Other long term (current) drug therapy; Z88.1 Allergy status to other antibiotic agents
CPT/HCPCS: 36415; 74177; 80053; 81001; 83690; 84703; 85025; 96361; 96374; 96375; 99284; J1200; J1885; J2270; J2405; J2765; J7030; Q9967